=== PATIENT | female | born 1980 | race Caucasian/White ===

== ENCOUNTER → 2017-08-06 08:06 | Outpatient (CLI) | payer BC | END | disposition home or self-care (01) | LOC: D.CT 08:00 | DX: R10.9 Unspecified abdominal pain (principal) ==

== ENCOUNTER 2020-01-02 06:04 | Day surgery (SDC) | payer BC ==
[~2020-01-02] VITALS: Ht 175.3 cm; Wt 86.4 kg
[2020-01-02 06:34] LABS: HEMOGLOBIN 14.3 g/dL (12-16); MCH 31.2 pg (26.0-34.0); MCHC 33.3 g/dL (31.0-37.0); MCV 93.9 fL (80.0-100.0); MEAN PLATELET VOLUME 10.1 fL (7.4-10.4); RBC 4.58 10x6/uL (4.00-5.40); RDW 12.1 % (11.5-14.5); WBC 9.5 10x3/uL (4.8-10.8)
[2020-01-02] MEDS ORDERED: OLMESARTAN-HCT1 EAC1 PO (06:50)
[2020-01-02 07:03] VITALS: BP 109/57; Ht 175.3 cm; Wt 86.4 kg
[2020-01-02 07:09] LABS: HCG URINE NEGATIVE (NEGATIVE)
== END 2020-01-02 11:45 | disposition home or self-care (01) ==
LOC: D.OPS 06:04
PROVIDERS: Anesthesiology; ATTEND Surgery
DX: K62.89 Other specified diseases of anus and rectum (principal); K92.1 Melena; K64.8 Other hemorrhoids; R10.32 Left lower quadrant pain